=== PATIENT | male | born 1965 | race Caucasian/White ===

== ENCOUNTER 2018-11-01 12:07 | Day surgery (SDC) | payer OTHER ==
[2018-11-01] MEDS ORDERED: LIDOCAINE 2% MDV (20MG/ML) 20ML VIAL IV ONE (12:08)
[2018-11-01] MEDS ORDERED: PROPOFOL 10 MG/ML VIAL IV ONE (12:08)
--- NOTE | 2018-11-02 09:50 | Operative Note ---
DATE OF SURGERY: 11/01/2018 OPERATION: COLONOSCOPY with cold snare polypectomy. PREOPERATIVE DIAGNOSIS: Personal history of colon polyps. POSTOPERATIVE DIAGNOSIS: Ascending colon polyp. PREPARATION QUALITY: Good. ESTIMATED BLOOD LOSS: Minimum. SPECIMENS: Ascending colon polyp. COMPLICATIONS: None apparent. PROCEDURE: After informed consent was obtained from the patient, he was placed in the left lateral decubitus position in the endoscopy suite, sedated and monitored by the department of anesthesia. Digital rectal exam was unremarkable. A well-lubricated HL301EK colonoscope was inserted into the rectum and advanced to the cecum. The cecum, cecal bulb, ileocecal valve, and appendiceal orifice were unremarkable. The ascending colon revealed a sessile polyp which was removed with a cold snare. The polyp was approximately 6-7 mm in diameter. The remainder of the ascending colon, transverse colon, descending colon, sigmoid colon, and rectum were unremarkable. No additional polyps were seen. Forward and J-turn views of the rectum and anorectum were unremarkable. The endoscope was straightened, the rectal ampulla deflated, and the endoscope was removed. RECOMMENDATIONS: I would suggest the patient resume his medications and diet. He will require repeat exam in 3-5 years pending tissue histology. As always, thank you for allowing me to participate in the healthcare of your patients. DARREL
== END 2018-11-01 14:10 | disposition home or self-care (01) ==
LOC: HOP 12:07
PROVIDERS: ATTEND Internal Medicine Gastroenterology
DX: Z12.11 Encounter for screening for malignant neoplasm of colon (principal); D12.2 Benign neoplasm of ascending colon; Z86.010 Personal history of colon polyps; I10 Essential (primary) hypertension; E78.00 Pure hypercholesterolemia, unspecified; M19.90 Unspecified osteoarthritis, unspecified site

== ENCOUNTER 2018-12-31 16:45 | Emergency (ER) | payer OTHER ==
[2018-12-31] MEDS ORDERED: PROPARACAINE HCL OPTH 15ML BTL OPTH ONE (17:05)
[2018-12-31] MEDS ORDERED: GENTAMICIN SULFATE 0.3% OPTH 5 ML BTL OPTH ONE (17:32)
[2018-12-31] MEDS ORDERED: Diph,Pert(Acell),Tet Vac 0.5 ML SYR IM ONE (17:33)
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
== END 2018-12-31 17:48 | disposition home or self-care (01) ==
LOC: ER 16:45
DX: T15.01XA Foreign body in cornea, right eye, initial encounter (principal); E78.00 Pure hypercholesterolemia, unspecified; W40.8XXA Explosion of other specified explosive materials, initial encounter; Y99.0 Civilian activity done for income or pay
CPT/HCPCS: 90715; 96372; 99283; 99284